=== PATIENT | female | born 1940 | race Two or more races ===

== ENCOUNTER 2018-07-12 13:22 | Inpatient (IN) | payer OTHER ==
[~2018-07-12] VITALS: Ht 160 cm; Wt 67.1 kg
--- NOTE | 2018-07-12 14:00 | NUR ---
Pt. was seen by .
--- NOTE | 2018-07-12 14:19 | NUR ---
pt.in the [facility]ily [facility]in at bedside, pt.with episodes of agitation.
[2018-07-12 14:30] LABS: BASOPHILS % (AUTO) 0.6 % (0.0-2.0); EOSINOPHILS % (AUTO) 0.5 % (0.0-7.0); HEMATOCRIT 36.6 % (31.2-41.9); HEMOGLOBIN 12.1 g/dL (10.9-14.3); LYMPHOCYTES # (AUTO) 1.8 K/uL (20.0-40.0); LYMPHOCYTES % (AUTO) 37.4 % (20.5-51.5); MEAN CORPUSCULAR HEMOGLOBIN 29.2 uug (24.7-32.8); MEAN CORPUSCULAR HGB CONC 33 g/dL (32.3-35.6); MEAN CORPUSCULAR VOLUME 88.6 fL (75.5-95.3); MONOCYTES # (AUTO) 0.3 K/uL (2.0-10.0); MONOCYTES % (AUTO) 6.8 % (0.0-11.0); NEUTROPHILS # (AUTO) 2.7 K/uL (1.8-8.9); NEUTROPHILS % (AUTO) 54.7 % (38.5-71.5); PLATELET COUNT (AUTO) 204 K/uL (179-408); RED BLOOD CELL COUNT(AUTO) 4.13 MIL/uL (3.63-4.92); WHITE BLOOD COUNT (AUTO) 4.9 K/uL (3.8-11.8)
[2018-07-12 14:35] LABS: CARBON DIOXIDE 28 mmol/L (21-32); CHLORIDE 107 mmol/L (98-107); CREATININE 0.7 mg/dL (0.6-1.3); GLUCOSE 92 mg/dL (74-106); POTASSIUM 3.4 mmol/L (3.5-5.1); UREA NITROGEN, BLOOD 15 mg/dL (7-18)
[2018-07-12 14:38] LABS: ALANINE AMINOTRANSFERASE 19 U/L (14-59); ALKALINE PHOSPHATASE 108 U/L (50-136); ASPARTATE AMINOTRANSFERASE 13 U/L (15-37); BILIRUBIN,DIRECT 0.1 mg/dL (0.0-0.2); BILIRUBIN,TOTAL 0.2 mg/dL (0.2-1.0); TOTAL PROTEIN, SERUM 7.4 g/dL (6.4-8.2)
[2018-07-12 14:39] LABS: ACETAMINOPHEN < 2.0 ug/mL (10-30)
[2018-07-12 14:43] LABS: ETHANOL < 3 MG/DL (0-0)
[2018-07-12 15:01] LABS: *BILIRUBIN,URIN NEGATIVE (NEGATIVE); *BLOOD, URINE NEGATIVE (NEGATIVE); *CLARITY,URINE CLEAR (CLEAR); *COLOR,URINE YELLOW (YELLOW); *KETONES,URINE NEGATIVE (NEGATIVE); *PROTEIN,URINE NEGATIVE (NEGATIVE); *UROBILINOGEN,URINE 0.2 E.U./dl (NORMAL); LEUKOCYTE ESTERASE ,URINE NEGATIVE (NEGATIVE); NITRITE, URINE NEGATIVE (NEGATIVE); UGLUCOSE NEGATIVE (NEGATIVE)
[2018-07-12 15:12] LABS: *AMPHETAMINE, URINE NEGATIVE (NEGATIVE); *BARBITURATE, URINE NEGATIVE (NEGATIVE); *CANNABINOID, URINE NEGATIVE (NEGATIVE); *COCCAINE, URINE NEGATIVE (NEGATIVE); *OPIATE, URINE NEGATIVE (NEGATIVE); *PHENCYCLIDINE SCREEN,URINE NEGATIVE (NEGATIVE)
--- NOTE | 2018-07-12 15:20 | NUR ---
called judah hilton for psych eval. eta 30 minutes
--- NOTE | 2018-07-12 15:45 | NUR ---
PT.WAS SEEN BY LINDA/CRISIS TEAM FOR EVAL.
[2018-07-12 19:00] VITALS: BP 164/88
[2018-07-12] MEDS ORDERED: MAG HYDROX/AL HYDROX/SIMETH 30 ML LIQUID UDC PO PRN (19:00)
[2018-07-12] MEDS ORDERED: TEMAZEPAM 7.5 MG CAPSULE PO PRN (19:00)
[2018-07-12] MEDS ORDERED: ACETAMINOPHEN 325 MG TABLET PO PRN (19:00)
[2018-07-12] MEDS ORDERED: LORAZEPAM 0.5 MG TABLET PO PRN (19:00)
[2018-07-12] MEDS ORDERED: MAGNESIUM HYDROXIDE 30 ML LIQUID UDC PO PRN (19:00)
--- NOTE | 2018-07-12 20:00 | NUR ---
Admission Note: 78 y.o. female brought to MHU from ER via gurney accompanied by ER staff. Pt admitted on a 5150 for GD under the care of Dr Mejia and Dr Browne. According to the 5150, Pt was responding to internal stimuli, not sleeping, and screaming at imaginary people. Pt has a fixed delusion that she will get AIDs from other people, the hospital, and her daughter. Pt was discharged from [facility] psych unit 07/04/18, and has been cheeking her medications since discharge. Pt has 6 previous [facility] hospitalizations over the last 25 years. Upon admission to the unit VS stable, no c/o pain. Upon face to face evaluation, Pt was initially pleasant and cooperative. Pt was taken to her room for a body assessment, and she became agitated when asked for the string to her sweats and her bra due to the under wire. Pt began yelling and screaming, threatening staff, and refusing to give her clothing to staff despite explaining the safety and unit rules. Pt was offered Ativan to help calm her, which was refused. Dr Mejia notified of Pt's behavior, but when Pt understood she was going to receive a shot to help calm her, Pt calmed and gave her clothing to staff, shot was held. Pt remained uncooperative with signing paperwork and stated she is "only here because my daughter put me here to get me out of her way." Affect is labile, speech is pressured, and mood is volatile, anxious, and restless. Pt appears to reflect what is on the Hold. Skin assessment completed with licensed female staff-skin C/D/I. Medical h/o schizophrenia, falls, and pacemaker. Dr Mejia and Dr Browne notified of admission, orders received. Pt belongings inventoried, contraband placed in unit locker. Patient Rights handbook and Advisement given to Pt, rights and unit rules/expectations explained. Pt oriented to the unit, the phone, the restrooms, and his room. Q 15 minute rounding initiated for safety.
[2018-07-12] MEDS ORDERED: CLONIDINE HCL 0.1 MG TABLET PO PRN (23:00)
[2018-07-13 07:30] VITALS: BP 126/56
[2018-07-13 07:45] LABS: BASOPHILS % (AUTO) 0.4 % (0.0-2.0); EOSINOPHILS % (AUTO) 0.5 % (0.0-7.0); HEMATOCRIT 34.6 % (31.2-41.9); HEMOGLOBIN 11.5 g/dL (10.9-14.3); LYMPHOCYTES # (AUTO) 1.2 K/uL (20.0-40.0); MEAN CORPUSCULAR HGB CONC 33 g/dL (32.3-35.6); MEAN CORPUSCULAR VOLUME 87.5 fL (75.5-95.3); MONOCYTES # (AUTO) 0.2 K/uL (2.0-10.0); MONOCYTES % (AUTO) 5.3 % (0.0-11.0); NEUTROPHILS % (AUTO) 66.8 % (38.5-71.5); PLATELET COUNT (AUTO) 202 K/uL (179-408); RED BLOOD CELL COUNT(AUTO) 3.95 MIL/uL (3.63-4.92); WHITE BLOOD COUNT (AUTO) 4.5 K/uL (3.8-11.8)
[2018-07-13 08:24] LABS: ALANINE AMINOTRANSFERASE 16 U/L (14-59); ALKALINE PHOSPHATASE 107 U/L (50-136); ASPARTATE AMINOTRANSFERASE 14 U/L (15-37); BILIRUBIN,TOTAL 0.5 mg/dL (0.2-1.0); CARBON DIOXIDE 31 mmol/L (21-32); CHLORIDE 108 mmol/L (98-107); CHOLESTEROL 134 mg/dL (<200); CREATININE 0.7 mg/dL (0.6-1.3); GLUCOSE 88 mg/dL (74-106); HDL CHOLESTEROL 52 mg/dL (40-60); MAGNESIUM 2.1 mg/dL (1.8-2.4); PHOSPHOROUS 3.7 mg/dL (2.5-4.9); POTASSIUM 3.7 mmol/L (3.5-5.1); TOTAL PROTEIN, SERUM 6.6 g/dL (6.4-8.2); TRIGLYCERIDES 24 MG/DL (30-150); UREA NITROGEN, BLOOD 13 mg/dL (7-18)
[2018-07-13 09:42] LABS: THYROID STIMULATING HORMONE 2.378 mIU/mL (0.358-3.740)
--- NOTE | 2018-07-13 14:49 | NUR ---
UR Note: YASIR faxed daily clinicals to [facility] Down Filler, Ramón (ph. [phone]; f. [phone]). Discussed with Ramón the daughter's wishes for an IOP authorization for the patient to attend when discharged. Ramón reported he would attempt to find an IOP for the patient. YASIR will continue to follow-up.
[2018-07-13 16:18] VITALS: BP 118/58
--- NOTE | 2018-07-13 16:27 | NUR ---
GROUP ACTIVITY NOTE: GOAL Patient will actively participate in the group activity of the day or relax in the activity room with fellow patients. INTERVENTION Courtesy Booth Cashier international relations teacher invited patient to participate in a group activity consisting of painting masks, completing crossword puzzles or reading held from 2-2:30 pm in the activities room. RESPONSE Patient expressed disinterest in participating in activities or relaxing in the activities room with peers. Patient remained in their room resting during that time. PLAN Patient will be invited to attend the next group activity.
[2018-07-13] MEDS ORDERED: ARIPIPRAZOLE 5 MG TABLET PO SCH (17:00)
--- NOTE | 2018-07-13 18:09 | NUR ---
patient remains isolative no interaction with other peers, ambulating well with PT , seen by Dr. oneil today ,will encourage pt for medication taken ,encourage to attendance group activity.
[2018-07-13] MEDS: ARIPIPRAZOLE 5 MG TABLET PO SCH (18:14)
[2018-07-13 19:58] VITALS: BP 92/41
[2018-07-14 07:30] VITALS: BP 120/48
--- NOTE | 2018-07-14 10:52 | NUR ---
Initial Discharge Instructions: Patient currently lives at home with her daughter [[address] [facility] [address] [place] [address]; [phone]]. Per pt, she would like to return home with her daughter. Spoke with pt's daughter, Greta Crowley ([phone]) who states she would like pt to return home upon discharge. SW will continue to collaborate with pt, family, and MD regarding most appropriate discharge plans for this patient. SW will form a safe and proper discharge plan.
--- NOTE | 2018-07-14 11:02 | NUR ---
UR Note: YASIR faxed daily clinicals to [facility] Audit Intern, Ramón (ph. [phone]; f. [phone]). YASIR will continue to follow-up.
[2018-07-14 16:00] VITALS: BP 128/59
[2018-07-14] MEDS: ARIPIPRAZOLE 5 MG TABLET PO SCH (17:58)
[2018-07-14 20:36] VITALS: BP 129/61
--- NOTE | 2018-07-14 21:00 | NUR ---
nsg: pt remains in bed, very isolative. no distress noted. denies hearing voices. bed alarm on. cont to monitor.
[2018-07-15 07:30] VITALS: BP 139/76
--- NOTE | 2018-07-15 10:56 | NUR ---
UR Note: YASIR faxed daily clinicals to [facility] Registered Nurse First Assistant, Ramón (ph. [phone]; f. [phone]). YASIR asked Ramón for an update regarding IOP update. YASIR will continue to follow-up. Addendum: 07/15/18 at 1600 by [facility] [employer] [facility] [employer] received a follow-up call from Sunny (covering Registered Nurse First Assistant) at [facility] (ph. [phone]). Per Sunny, assigned CM, Ramón will return on Wednesday07/18/18. Sunny reported that he sent an inquiry to [facility] and was hoping to schedule an intake appointment for the patient during the week of 07/18/18. Per Sunny, the Director of the IOP is Tiana Gupta ([phone]). YASIR will follow-up with Tiana on 07/18, if not heard back. Per Sunny, pt is authorized 3 additional days (07/15-07/17) with a review due on 07/18. Authorization #[id number] obtained. YASIR will continue to follow-up.
--- NOTE | 2018-07-15 14:26 | NUR ---
GROUP ACTIVITY NOTE: GOAL Patient will actively participate in the group activity of the day or relax in the activity room with fellow patients. INTERVENTION Market Research Consultant software developer intern invited patient to participate in a group activity consisting of board games, painting masks, or watching TV held from 10-10:45 am in the activities room. SW encouraged pt. multiple times to attend activity because she seemed interest. RESPONSE Patient initially expressed interest in participating in group activities but didnt want to get out of bed. Patient appeared lethargic and unable to motivate herself to get up from her bed. PLAN Patient will be invited to attend the next group activity.
[2018-07-15 16:00] VITALS: BP 152/76
--- NOTE | 2018-07-15 16:03 | NUR ---
Firearms Report: YASIR completed and submitted [employer] Firearms Report for 5250 GD certification.
[2018-07-15] MEDS: ARIPIPRAZOLE 5 MG TABLET PO SCH (17:38)
[2018-07-15 20:33] VITALS: BP 131/74
[2018-07-16 09:26] VITALS: BP 126/62
[2018-07-16 16:19] VITALS: BP 133/66
[2018-07-16] MEDS: ARIPIPRAZOLE 5 MG TABLET PO SCH (16:35)
[2018-07-16 20:19] VITALS: BP 110/60
--- NOTE | 2018-07-17 07:10 | NUR ---
PATIENT SLEEPING INTERMITTENTLY NO C/O PAIN AOR ANY DISCOMFORT. NO BEHAVIORAL ISSUES NOTED. SLEPT FOR 7.3 HRS
[2018-07-17 07:30] VITALS: BP 120/61
[2018-07-17 16:00] VITALS: BP 143/65
[2018-07-17] MEDS: ARIPIPRAZOLE 5 MG TABLET PO SCH (17:27)
[2018-07-17 20:00] VITALS: BP 121/63
--- NOTE | 2018-07-17 23:30 | NUR ---
GPS: Pt.still awake at this time but quietly staring at the ceiling. Denies hearing voices when asked. Refused Restoril 7.5mg when offered for insomnia despite numerous attempts. Quiet environment provided to facilitate sleep. Will continue to monitor.
[2018-07-18 07:30] VITALS: BP 145/68
--- NOTE | 2018-07-18 11:33 | NUR ---
CALL IN DISCHARGE PRESCRIPTIONS TO [facility] @ [phone].
--- NOTE | 2018-07-18 12:01 | NUR ---
Discharge Note: Patient will be discharged back home with her daughter, Greta [[address] [place] [address]; [phone]] via private transportation at 2pm. Spoke with patients daughter, Greta ([phone]) who will be providing the transportation and is aware and agreeable with discharge plans. Patient is aware and agreeable with discharge plans. Spoke with Veterinary Medical Officer, Sunny, at [facility] ([phone]) who states he faxed an inquiry for Intensive Outpatient Program admission to [facility] [[address] [place] [address]; [phone]]. Once admitted, patient will be assigned a Psychiatrist. Patient will also continue to follow-up with her PCP [facility] [[address], [place] [address] .] A Home Health Order for medication management and RN safety evaluation was faxed to Sunny at [facility] (f. [phone]). Per Sunny, he will follow-up with the patient and daughter when it is set up. Patient was provided with outpatient mental health referrals to [facility] Crisis Line , Nighat Armenta , and the National Suicide Prevention Lifeline . For smoking cessation, patient was referred to [employer] 800-LUNGUSA and [employer] [phone]. Patient was encouraged to participate in a telephone Nicotine Anonymous meeting on Wednesday, July 18, 2018 at 6:15pm.
--- NOTE | 2018-07-18 13:15 | NUR ---
GPS: Nursing notes: Discharge Notes: Patient is awake and responding to her name, cooperative with nursing care, compliant with medication, following staff directions, denies any SI/HI, denies any pain or discomfort, denies any SOB. discharge home with daughterGreta at [address], [place] [address] , charge nurse called [facility] pharmacy , instructions given to her daughter, Greta, transported home via private transportation with daughter. gas worker spoke with Gas Main Fitter Helper, Sunny, at [facility] ([phone]) who states he faxed an inquiry for Intensive Outpatient Program admission to [facility] [[address] [place] [address]; [phone]]. Once admitted, patient will be assigned a Psychiatrist. Patient will also continue to follow-up with her PCP [facility] [[address], [place] [address] .] A Home Health Order for medication management and RN safety evaluation was faxed to Sunny at [facility] (f. [phone]). Per Sunny, he will follow-up with the patient and daughter when it is set up. Patient was provided with outpatient mental health referrals to [facility] Crisis Line , [facility] Armenta , and the National Suicide Prevention Lifeline . For smoking cessation, patient was referred to [employer] 800-LUNGUSA and [employer] [phone]. Patient was encouraged to participate in a telephone Nicotine Anonymous meeting on Wednesday, July 18, 2018 at 6:15pm.
--- NOTE | 2018-07-18 15:02 | NUR ---
UR Note: YASIR faxed discharge clinicals to [facility] Press Offbearer, Ramón (ph. [phone]; f. [phone]). Auth#[id number] YASIR will continue to follow-up
[2018-07-18] MEDS ORDERED: ATORVASTATIN 10 MG TABLET PO SCH (21:00)
[2018-07-19] MEDS ORDERED: ASPIRIN EC 81 MG TABLET.DR PO SCH (09:00)
== END 2018-07-18 13:15 | disposition home health service (06) | DRG 885 ==
LOC: ER 13:24 → GPS 18:33
PROVIDERS: ADMIT Psychiatry & Neurology Psychiatry; ATTEND Internal Medicine
DX: F20.0 Paranoid schizophrenia (principal); D68.59 Other primary thrombophilia; Z95.0 Presence of cardiac pacemaker; F17.210 Nicotine dependence, cigarettes, uncomplicated; I49.9 Cardiac arrhythmia, unspecified; E66.9 Obesity, unspecified; Z68.26 Body mass index [BMI] 26.0-26.9, adult; I70.0 Atherosclerosis of aorta; Z74.09 Other reduced mobility; E87.6 Hypokalemia
CPT/HCPCS: 36415; 80307; 83735; 84100; 84443; 85025; A4663; G0480; G0480-TC